=== PATIENT | female | born 1960 | race Hispanic/Latino ===

== ENCOUNTER → 2025-04-04 | Outpatient (CLI) | payer BC ==
[2025-04-04 10:22] LABS: CREATININE 0.7 mg/dL (0.5-1.0); GLOMERULAR FILTR. RATE CALC 97.0 mL/min (>90); UREA NITROGEN, BLOOD 10.0 mg/dL (7-18)
== END | disposition home or self-care (01) ==
LOC: LAB 09:51
PROVIDERS: ATTEND Internal Medicine Gastroenterology
DX: K74.60 Unspecified cirrhosis of liver (principal)
CPT/HCPCS: 36415; 82565; 84520

== ENCOUNTER → 2025-04-10 | Outpatient (CLI) | payer BC ==
[~2025-04-10] MED LIST: GADOTERATE MEGLUMINE 10 MMOL/20 ML VIAL IV ONE
--- NOTE | 2025-04-11 09:24 | HMCIMG ---
EXAM: MR Abdomen with and without Intravenous Contrast. CLINICAL HISTORY: Unspecified cirrhosis of the liver. TECHNIQUE: Multisequence, multiplanar magnetic resonance images of the abdomen. CONTRAST: Claviscan, 16 cc. COMPARISON: None provided. FINDINGS: No pleural effusion. There is no focal abnormality appreciated within the pancreas, adrenals. Mild hepatomegaly with mild diffuse surface nodularity suggesting early changes of liver cirrhosis. No hepatic mass. Status post cholecystectomy. Mild splenomegaly. Multiple venous collateral vessels in the upper abdomen and anterior abdominal wall. The portal vein is mildly prominent. No portal vein thrombosis. A 1.8 cm BOSNIAK type I right renal cortical cyst. Normal left kidney. No hydronephrosis. There is no obvious bowel wall thickening. No abdominal aortic aneurysm. No lymphadenopathy. Mild perihepatic fluid. There is no acute osseous abnormality. IMPRESSION: Mild hepatomegaly with mild diffuse surface nodularity suggesting early changes of liver cirrhosis. No hepatic mass. Mild prominence of the portal vein with venous collateral vessels in the upper abdomen and anterior abdominal wall. Mild splenomegaly. Mild perihepatic fluid. Small BOSNIAK type I right renal cortical cyst. No hydronephrosis. /Rudolph
== END | disposition home or self-care (01) ==
LOC: RAH 07:26
PROVIDERS: ATTEND Internal Medicine Gastroenterology
DX: N28.1 Cyst of kidney, acquired (principal); R16.2 Hepatomegaly with splenomegaly, not elsewhere classified; K74.60 Unspecified cirrhosis of liver; R77.2 Abnormality of alphafetoprotein; Z90.49 Acquired absence of other specified parts of digestive tract
CPT/HCPCS: 74183; A9575